=== PATIENT | male | born 1995 ===

== ENCOUNTER 2016-11-01 21:20 | Emergency (ER) | payer SELFPAY ==
[2016-11-01 21:20] VITALS: BMI 27.3
[2016-11-01 21:44] VITALS: BP 110/72; PULSE 89; TEMP 98; O2SAT 98
--- NOTE | 2016-11-01 22:40 | C.PDOC ---
History Of Present Illness Patient is a 21 year old male who presents to the ER with a complaint of hyperextending his 3rd right finger while playing basketball. Patient denies any other trauma or injury. Time Seen by Provider: 11/01/16 21:51 Chief Complaint (Nursing): Finger,Hand,&Wrist History Per: Patient History/Exam Limitations: no limitations Onset/Duration Of Symptoms: Hrs Current Symptoms Are (Timing): Still Present Exacerbating Factor(s): Movement Recent travel outside of the [place]: No Past Medical History Reviewed: Historical Data, Nursing Documentation, Vital Signs Vital Signs: Last Vital Signs Temp 98 F 11/01/16 21:42 Pulse 89 11/01/16 21:42 Resp 20 11/01/16 22:44 BP 110/72 11/01/16 21:42 Pulse Ox 98 11/01/16 22:40 - Medical History PMH: No Chronic Diseases - [facility] Procedures APPLICATION OF SPLINT (10/26/14) ORCHIOPEXY (10/06/13) TESTICULAR LES DESTRUCT (10/06/13) Family History: States: Unknown Family Hx - Social History Hx Tobacco Use: No Hx Alcohol Use: No Hx Substance Use: No - Immunization History Hx Tetanus Toxoid Vaccination: No Hx Influenza Vaccination: No Hx Pneumococcal Vaccination: No Review Of Systems Musculoskeletal: Positive for: Hand Pain (Right 3rd finger) Physical Exam - Physical Exam Appears: Well, Non-toxic Skin: Normal Color, Warm, Dry Head: Atraumatic, Normacephalic Oral Mucosa: Moist Extremity: Capillary Refill (Normal), Swelling (3rd right finger at AP joint) Pulses: Left Radial: Normal, Right Radial: Normal Neurological/Psych: Oriented x3, Normal Speech, Normal Cognition ED Course And Treatment O2 Sat by Pulse Oximetry: 98 (Room air) Pulse Ox Interpretation: Normal Progress Note: Right hand x-ray ordered, results show no acute fracture. Patient will be placed in finger splint, discharged home and instructed to follow up with ortho. Disposition - Disposition Referrals: Armando Vitale MD [Provisional Staff] - Disposition: HOME/ ROUTINE Disposition Time: 22:39 Condition: STABLE Additional Instructions: Follow up with Hand specialist. Return to ED if feel worse. Prescriptions: Ibuprofen [Motrin Tab] 600 mg PO Q8 #30 tab Instructions: Jammed Finger (ED), Splint Care (ED) - Clinical Impression Clinical Impression: Finger sprain - Scribe Statement The provider has reviewed the documentation as recorded by the Scribe Paco Graham All medical record entries made by the Brianibe were at my direction and personally dictated by me. I have reviewed the chart and agree that the record accurately reflects my personal performance of the history, physical exam, medical decision making, and the department course for this patient. I have also personally directed, reviewed, and agree with the discharge instructions and disposition.
[2016-11-01 22:44] VITALS: RESP 20
--- NOTE | 2016-11-02 08:38 | RAD ---
PROCEDURE: Right middle finger radiographs. HISTORY: injury COMPARISON: None. TECHNIQUE: AP radiograph of the right hand, as well as spot oblique and lateral images of right middle finger were obtained. FINDINGS: RIGHT MIDDLE FINGER: Right middle finger normal, without fracture of focal lesion. Remainder of the right hand (as seen on the AP view) grossly unremarkable. JOINTS: Normal. SOFT TISSUES: Third proximal interphalangeal joint level soft tissue swelling OTHER FINDINGS: None. IMPRESSION: No fracture. Soft tissue swelling
== END 2016-11-01 22:43 | disposition home or self-care (01) ==
LOC: C.ER 21:20
DX: S63.612A Unspecified sprain of right middle finger, initial encounter (principal); X58.XXXA Exposure to other specified factors, initial encounter; Y93.67 Activity, basketball; Y92.89 Other specified places as the place of occurrence of the external cause